=== PATIENT | female | born 1930 | race Caucasian/White ===

== ENCOUNTER 2018-02-22 22:45 | Emergency (ER) | payer MEDICARE, BC ==
--- NOTE | 2018-02-22 23:07 | EDM.PDOC ---
ED HPI GENERAL MEDICAL PROBLEM - General Stated Complaint: AMBULANCE - ASSESSMENT Time Seen by Provider: 02/22/18 23:02 Source of Information: Reports: [facility] Records History Limitations: Reports: Other (dementia) - History of Present Illness INITIAL COMMENTS - FREE TEXT/NARRATIVE: sent from custodial pt slid off sima lift during transfer. EMS found no gross trauma. pt dementia & has no c/o. - Related Data Allergies Allergy/AdvReac Type Severity Reaction Status Date / Time hydrochlorothiazide Allergy Cannot Verified 02/22/18 23:19 Remember Penicillins Allergy Cannot Verified 02/22/18 23:19 Remember phenoxybenzamine HCl Allergy Cannot Verified 02/22/18 23:19 [From Dibenzyline] Remember Home Meds: Home Meds Bisacodyl [Dulcolax] 10 mg RECTAL DAILY PRN 12/09/13 [History] Donepezil HCl 10 mg PO DAILY 12/09/13 [History] LORazepam [Ativan] 0.5 mg PO BID 12/09/13 [History] Levothyroxine Sodium 0.05 mg PO DAILY 12/09/13 [History] Memantine HCl [Namenda] 10 mg PO BID 12/09/13 [History] Na Phos,M-B/Na Phos,DI-B [Fleet Enema] 118 ml RECTAL Q72H PRN 12/09/13 [History] risperiDONE [Risperdal] 0.25 mg PO BID 12/09/13 [History] Acetaminophen [Tylenol] 650 mg PO TID 02/22/18 [History] Aspirin 81 mg PO DAILY 02/22/18 [History] Escitalopram Oxalate 10 mg PO DAILY 02/22/18 [History] Fruit Bomb 1 tbsp PO Q2D PRN 02/22/18 [History] Loperamide HCl [Anti-Diarrheal] 2 mg PO ASDIRECTED PRN 02/22/18 [History] Magnesium Hydroxide [Milk of Magnesia] 2,400 mg PO DAILY PRN 02/22/18 [History] Med Pass 2.0 4 oz PO BID 02/22/18 [History] Polyethylene Glycol 3350 [Miralax] 17 gm PO DAILY 02/22/18 [History] Sennosides/Docusate Sodium [Senna-S] 2 each PO DAILY 02/22/18 [History] Timolol Maleate [Timoptic 0.5% Ophth Soln] 1 drop EYELF BID 02/22/18 [History] Tobramycin 0.3% [Tobramycin 0.3% Ophth Soln] 1 drop EYELF BID 02/22/18 [History] Social & Family History - Tobacco Use Years of Tobacco use: 5 Second Hand Smoke Exposure: No - Alcohol Use Days Per Week of Alcohol Use: 0 - Recreational Drug Use Recreational Drug Use: No ED ROS GENERAL - Review of Systems Review Of Systems: ROS reveals no pertinent complaints other than HPI. ED EXAM, GENERAL - Physical Exam Exam: See Below Exam Limited By: No Limitations General Appearance: Other (conscious non verbal dementia) Eye Exam: Bilateral Eye: Other (right pupils round left pupils catarract) Ears: Normal External Exam, Normal Canal, Hearing Grossly Normal, Normal TMs Nose: Normal Inspection Throat/Mouth: No Airway Compromise Head: Atraumatic, Other (no palpable swelling/tenderness, no notable ecchymosis/ bleeding) Neck: Normal Inspection, Non-Tender, Other (minor abrasion on chin) Respiratory/Chest: No Respiratory Distress, No Accessory Muscle Use, Rhonchi, Other (basilar). No: Decreased Breath Sounds Cardiovascular: Regular Rate, Rhythm GI/Abdominal: Soft, Non-Tender Back Exam: Other (minor abrasion left post scap region) Extremities: Normal Inspection Neurological: Other (dementia) Psychiatric: Flat Affect Skin Exam: Warm, Dry, Normal Color Lymphatic: No Adenopathy Course - Vital Signs Last Recorded V/S: Last Vital Signs Temp 36.8 C 02/22/18 22:50 Pulse 83 02/22/18 22:50 Resp 14 02/22/18 22:50 BP 126/48 L 02/22/18 22:50 Pulse Ox 96 02/22/18 22:50 Departure - Departure Time of Disposition: 23:00 Disposition: DC/Tfer to SNF 03 Condition: Fair Clinical Impression: Chin abrasion, non-infected Abrasion of left scapular region Qualifiers: Encounter type: initial encounter Qualified Code(s): S40.212A - Abrasion of left shoulder, initial encounter - Discharge Information Referrals: PCP,Unobtain [Primary Care Provider] - Forms: ED Department Discharge Additional Instructions: 1) follow up with family doctor 2) return if there is any change or concern
== END 2018-02-22 23:26 ==
LOC: DL.ED 22:45
DX: S11.91XA Laceration without foreign body of unspecified part of neck, initial encounter (principal); S40.212A Abrasion of left shoulder, initial encounter; S00.81XA Abrasion of other part of head, initial encounter; F03.90 Unspecified dementia, unspecified severity, without behavioral disturbance, psychotic disturbance, mood disturbance, and anxiety; Z88.8 Allergy status to other drugs, medicaments and biological substances; Z88.0 Allergy status to penicillin; Z79.899 Other long term (current) drug therapy; Z79.82 Long term (current) use of aspirin; W17.89XA Other fall from one level to another, initial encounter
CPT/HCPCS: 99284

== ENCOUNTER 2018-11-30 10:25 | Inpatient (IN) | payer MEDICARE, BC, MEDICAID ==
[2018-11-30] MEDS ORDERED: Sodium Chloride 0.9% 10 ML Syringe FLUSH PRN (10:26)
--- NOTE | 2018-11-30 10:26 | EDM.PDOC ---
ED HPI GENERAL MEDICAL PROBLEM - General Chief Complaint: Cardiovascular Problem Stated Complaint: PULSE HIGH, HYPOXIA, FEVER Time Seen by Provider: 11/30/18 10:26 Source of Information: Reports: Family, Halfway Records, Old Records, Provider (Dr. Taylor), RN, RN Notes Reviewed History Limitations: Reports: Altered Mental Status - History of Present Illness INITIAL COMMENTS - FREE TEXT/NARRATIVE: Pt arrives from [facility] by ambulance with report that she had a fever this morning, and while being bathed she developed cough with low oxygen saturations (80s), and heart rate increased to 170's. By the time the pt arrived to the ER she was afebrile, heart rate was 103, and oxy. sat. of 95% on RA. Pt did drop her oxy. sat. to 90%-92% later and was placed on 2L by NC and maintained 98% oxy. sats. thereafter. Pt is non-verbal and cannot provide any history. Pt's son and daughter state pt appears to be at her baseline. Pt is documented to be DNR/DNI but otherwise wishes to have conservative medical care. Onset: Today Location: Reports: Generalized Severity: Moderate Improves with: Reports: None Worsens with: Reports: None Associated Symptoms: Reports: No Other Symptoms - Related Data Allergies Allergy/AdvReac Type Severity Reaction Status Date / Time hydrochlorothiazide Allergy Cannot Verified 11/30/18 10:45 Remember Penicillins Allergy Cannot Verified 11/30/18 10:45 Remember phenoxybenzamine HCl Allergy Cannot Verified 11/30/18 10:45 [From Dibenzyline] Remember Home Meds: Home Meds Bisacodyl [Dulcolax] 10 mg RECTAL DAILY PRN 12/09/13 [History] Donepezil HCl 10 mg PO DAILY 12/09/13 [History] LORazepam [Ativan] 0.5 mg PO BID 12/09/13 [History] Levothyroxine Sodium 0.05 mg PO DAILY 12/09/13 [History] Memantine HCl [Namenda] 10 mg PO BID 12/09/13 [History] Na Phos,M-B/Na Phos,DI-B [Fleet Enema] 118 ml RECTAL Q72H PRN 12/09/13 [History] risperiDONE [Risperdal] 0.25 mg PO BID 12/09/13 [History] Acetaminophen [Tylenol] 650 mg PO TID 02/22/18 [History] Aspirin 81 mg PO DAILY 02/22/18 [History] Escitalopram Oxalate 10 mg PO DAILY 02/22/18 [History] Fruit Bomb 1 tbsp PO Q2D PRN 02/22/18 [History] Loperamide HCl [Anti-Diarrheal] 2 mg PO ASDIRECTED PRN 02/22/18 [History] Magnesium Hydroxide [Milk of Magnesia] 2,400 mg PO DAILY PRN 02/22/18 [History] Med Pass 2.0 4 oz PO BID 02/22/18 [History] Polyethylene Glycol 3350 [Miralax] 17 gm PO DAILY 02/22/18 [History] Sennosides/Docusate Sodium [Senna-S] 2 each PO DAILY 02/22/18 [History] Timolol Maleate [Timoptic 0.5% Ophth Soln] 1 drop EYELF BID 02/22/18 [History] Tobramycin 0.3% [Tobramycin 0.3% Ophth Soln] 1 drop EYELF BID 02/22/18 [History] Past Medical History HEENT History: Reports: Other (See Below) Other HEENT History: 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 nutritional deficiency Genitourinary History: Reports: UTI, Recurrent Musculoskeletal History: Reports: Osteoarthritis, Other (See Below) Other Musculoskeletal History: localized scleroderma Neurological History: Reports: Other (See Below) Other Neuro History: cerebral vascular disease Psychiatric History: Reports: Anxiety, Dementia Endocrine/Metabolic History: Reports: Hypothyroidism Dermatologic History: Reports: Seborrheic Dermatitis - Infectious Disease History Infectious Disease History: Reports: Other (See Below) Other Infectious Disease History: unknown, unable to assess Social & Family History - Family History Family Medical History: Noncontributory - Living Situation & Occupation Living situation: Reports: Extended Care Facility Occupation: Retired ED ROS GENERAL - Review of Systems Review Of Systems: Unable To Obtain (nonverbal pt) ED EXAM, GENERAL - Physical Exam Exam: See Below Exam Limited By: Altered Mental Status (Advance dementia) General Appearance: Alert, No Apparent Distress, Other (Frail elderly, chronically ill appearing) Eye Exam: Left Eye: Other (chronic left pupil abnormality), Bilateral Eye: Conjunctival Injection Ears: Normal External Exam Nose: Normal Inspection, Normal Mucosa, No Blood Throat/Mouth: Normal Lips, No Airway Compromise, Other (Dry oral membranes) Head: Atraumatic, Normocephalic Neck: Normal Inspection Respiratory/Chest: No Respiratory Distress, No Accessory Muscle Use, Chest Non- Tender, Decreased Breath Sounds (Left base). No: Rales, Rhonchi, Wheezing Cardiovascular: Regular Rate, Rhythm, No Edema, Tachycardia GI/Abdominal: Normal Bowel Sounds, Soft, Non-Tender, No Distention Extremities: Normal Inspection Neurological: Inattentive, Disoriented, Other (Advanced dementia, nonverbal (at baseline per family)) Skin Exam: Warm, Dry, Intact EKG INTERPRETATION EKG Date: 11/30/18 Time: 10:24 Rhythm: Other (Sinus Tach) Rate (Beats/Min): 103 [place]: Normal P-Wave: Present QRS: Normal ST-T: Other (repol. abnl. in diffuse leads, nonspecific) QT: Normal Comparison: NA - No Prior EKG Course - Vital Signs Last Recorded V/S: Last Vital Signs Temp 37.1 C 11/30/18 10:29 Pulse 105 H 11/30/18 10:29 Resp 27 H 11/30/18 10:29 BP 134/84 11/30/18 10:29 Pulse Ox 94 L 11/30/18 10:29 - Orders/Labs/Meds Orders: Active Orders 24 hr Category Date Time Status EKG 12 Lead [EKG Documentation Completion] [RC] STAT Care 11/30/18 10:27 Active Peripheral IV Care [RC] . DIRECTED Care 11/30/18 10:28 Active CULTURE BLOOD [BC] Stat Lab 11/30/18 10:43 Received CULTURE BLOOD [BC] Stat Lab 11/30/18 10:50 Received Levofloxacin/Dextrose 5%-Water [Levaquin in D5W 500 MG/ Med 11/30/18 11:50 Ordered 100 ML] 500 mg Premix Bag 1 bag IV ONETIME Sodium Chloride 0.9% [Saline Flush] Med 11/30/18 10:26 Active 10 ml FLUSH ASDIRECTED PRN Blood Culture x2 Reflex Set [OM.PC] Stat Oth 11/30/18 10:27 Ordered Peripheral IV Insertion Adult [OM.PC] Stat Oth 11/30/18 10:27 Ordered Medication Orders Levofloxacin/Dextrose 500 mg/ (Premix) 100 mls @ 100 mls/hr IV ONETIME ONE Stop: 11/30/18 12:49 Sodium Chloride (Saline Flush) 10 ml FLUSH ASDIRECTED PRN PRN Reason: Keep Vein Open Last Admin: 11/30/18 10:34 Dose: 10 ml Labs: Laboratory Tests 11/30/18 11/30/18 11/30/18 Range/Units 10:43 10:43 10:43 WBC 14.6 H (5.0-10.0) 10^3/uL RBC 5.25 (4.2-5.4) 10^6/uL Hgb 16.0 D (12.0-16.0) g/dL Hct 50.7 H (37.0-47.0) % MCV 96.6 D (80-100) fL MCH 30.5 (27.0-34.0) pg MCHC 31.6 L (33.0-35.0) g/dL Plt Count 260 (150-450) 10^3/uL Neut % (Auto) 72.1 (42.2-75.2) % Lymph % (Auto) 21.1 (20.5-50.1) % [place] % (Auto) 5.4 (2-8) % Eos % (Auto) 0.9 L (1.0-3.0) % Baso % (Auto) 0.5 (0.0-1.0) % PT 10.2 (9.0-12.0) SEC INR 1.0 (0.9-1.2) APTT 21.9 L (22.0-34.0) SEC Sodium 153 H D (135-145) mmol/L Potassium 3.8 (3.6-5.0) mmol/L Chloride 121 H D (101-111) mmol/L Carbon Dioxide 22.0 (21.0-31.0) mmol/L Anion Gap 13.8 BUN 57 H D (7-18) mg/dL Creatinine 1.0 (0.6-1.3) mg/dL Est Cr Clr Drug Dosing 35.70 mL/min Estimated GFR (MDRD) 52 BUN/Creatinine Ratio 57.00 Glucose 265 H (74-105) mg/dL Lactic Acid (0.5-2.2) mmol/L Calcium 9.1 (8.4-10.2) mg/dl Total Bilirubin 0.8 (0.2-1.0) mg/dL AST 48 H (10-42) IU/L ALT 52 (10-60) IU/L Alkaline Phosphatase 74 (42-121) IU/L Troponin I 0.03 H* (0.00-0.02) ng/ml B-Natriuretic Peptide 71 (0-100) pg/ml Total Protein 7.7 (6.7-8.2) g/dl Albumin 3.9 (3.2-5.5) g/dl Globulin 3.8 Albumin/Globulin Ratio 1.03 Urine Color (YELLOW) Urine Appearance (CLEAR) Urine pH (5.0-9.0) Ur Specific [place] (1.005-1.030) Urine Protein (NEGATIVE) Urine Glucose (UA) (NEGATIVE) Urine Ketones (NEGATIVE) Urine Occult Blood (NEGATIVE) Urine Nitrite (NEGATIVE) Urine Bilirubin (NEGATIVE) Urine Urobilinogen (0.2-1.0) mg/dL Ur Leukocyte Esterase (NEGATIVE) Urine RBC /HPF Urine WBC (0-5/HPF) /HPF Ur Epithelial Cells /HPF Amorphous Sediment (0/HPF) /HPF Urine Bacteria (0-FEW/HPF) /HPF 11/30/18 11/30/18 Range/Units 10:43 11:11 WBC (5.0-10.0) 10^3/uL RBC (4.2-5.4) 10^6/uL Hgb (12.0-16.0) g/dL Hct (37.0-47.0) % MCV (80-100) fL MCH (27.0-34.0) pg MCHC (33.0-35.0) g/dL Plt Count (150-450) 10^3/uL Neut % (Auto) (42.2-75.2) % Lymph % (Auto) (20.5-50.1) % [place] % (Auto) (2-8) % Eos % (Auto) (1.0-3.0) % Baso % (Auto) (0.0-1.0) % PT (9.0-12.0) SEC INR (0.9-1.2) APTT (22.0-34.0) SEC Sodium (135-145) mmol/L Potassium (3.6-5.0) mmol/L Chloride (101-111) mmol/L Carbon Dioxide (21.0-31.0) mmol/L Anion Gap BUN (7-18) mg/dL Creatinine (0.6-1.3) mg/dL Est Cr Clr Drug Dosing mL/min Estimated GFR (MDRD) BUN/Creatinine Ratio Glucose (74-105) mg/dL Lactic Acid 2.7 H (0.5-2.2) mmol/L Calcium (8.4-10.2) mg/dl Total Bilirubin (0.2-1.0) mg/dL AST (10-42) IU/L ALT (10-60) IU/L Alkaline Phosphatase (42-121) IU/L Troponin I (0.00-0.02) ng/ml B-Natriuretic Peptide (0-100) pg/ml Total Protein (6.7-8.2) g/dl Albumin (3.2-5.5) g/dl Globulin Albumin/Globulin Ratio Urine Color Yellow (YELLOW) Urine Appearance Slightly cloudy (CLEAR) Urine pH 5.0 (5.0-9.0) Ur Specific [place] >= 1.030 (1.005-1.030) Urine Protein 100 H (NEGATIVE) Urine Glucose (UA) Negative (NEGATIVE) Urine Ketones Negative (NEGATIVE) Urine Occult Blood Small H (NEGATIVE) Urine Nitrite Negative (NEGATIVE) Urine Bilirubin Negative (NEGATIVE) Urine Urobilinogen 0.2 (0.2-1.0) mg/dL Ur Leukocyte Esterase Negative (NEGATIVE) Urine RBC 0-5 /HPF Urine WBC 0-5 (0-5/HPF) /HPF Ur Epithelial Cells Few /HPF Amorphous Sediment Moderate H (0/HPF) /HPF Urine Bacteria Few (0-FEW/HPF) /HPF Influenza A/B: negative Meds: Medications Generic Name Dose Route Start Last Admin Trade Name Freq PRN Reason Stop Dose Admin Levofloxacin/Dextrose 500 mg/ 100 mls @ 100 mls/hr 11/30/18 11:50 Premix IV 11/30/18 12:49 ONETIME ONE Sodium Chloride 10 ml 11/30/18 10:26 11/30/18 10:34 Saline Flush FLUSH 10 ml ASDIRECTED PRN Administration Keep Vein Open Discontinued Medications Generic Name Dose Route Start Last Admin Trade Name Srini PRN Reason Stop Dose Admin Sodium Chloride 1,000 mls @ 999 mls/hr 11/30/18 10:35 11/30/18 11:20 Normal Saline IV 11/30/18 11:35 999 mls/hr .BOLUS ONE Administration - Radiology Interpretation Free Text/Narrative:: CXR: no acute process per Rad. report. - Re-Assessments/Exams Free Text/Narrative Re-Assessment/Exam: 11/30/18 12:01 I discussed the case with Dr. Taylor (pt's PCP). Dr. Taylor does not want to bring the pt back to the residential at this time, and requests that the pt be admitted for observation and hydration with repeat labs and chest x-ray to r/o developing pneumonia before returning her to the residential. Pt will be admitted to Dr. Quiñonez's hospitalist service. Departure - Departure Time of Disposition: 11:58 (admit to Dr. Quiñonez) Disposition: Refer to Observation Condition: Undetermined Clinical Impression: Dehydration, Hypernatremia, Fever of unknown origin, Advanced dementia Pneumonia Qualifiers: Pneumonia type: due to unspecified organism Laterality: left Lung location: lower lobe of lung Qualified Code(s): J18.1 - Lobar pneumonia, unspecified organism - Discharge Information *PRESCRIPTION DRUG MONITORING PROGRAM REVIEWED*: Not Applicable *COPY OF PRESCRIPTION DRUG MONITORING REPORT IN PATIENT KENDRICK: Not Applicable Forms: ED Department Discharge - My Orders Last 24 Hours: My Active Orders 11/30/18 10:26 Sodium Chloride 0.9% [Saline Flush] 10 ml FLUSH ASDIRECTED PRN 11/30/18 10:27 EKG 12 Lead [EKG Documentation Completion] [RC] STAT Blood Culture x2 Reflex Set [OM.PC] Stat Peripheral IV Insertion Adult [OM.PC] Stat 11/30/18 10:28 Peripheral IV Care [RC] . DIRECTED 11/30/18 10:43 CULTURE BLOOD [BC] Stat 11/30/18 10:50 CULTURE BLOOD [BC] Stat 11/30/18 11:50 Levofloxacin/Dextrose 5%-Water [Levaquin in D5W 500 MG/100 ML] 500 mg Premix Bag 1 bag IV ONETIME - Assessment/Plan Last 24 Hours: My Active Orders 11/30/18 10:26 Sodium Chloride 0.9% [Saline Flush] 10 ml FLUSH ASDIRECTED PRN 11/30/18 10:27 EKG 12 Lead [EKG Documentation Completion] [RC] STAT Blood Culture x2 Reflex Set [OM.PC] Stat Peripheral IV Insertion Adult [OM.PC] Stat 11/30/18 10:28 Peripheral IV Care [] . DIRECTED 11/30/18 10:43 CULTURE BLOOD [BC] Stat 11/30/18 10:50 CULTURE BLOOD [BC] Stat 11/30/18 11:50 Levofloxacin/Dextrose 5%-Water [Levaquin in D5W 500 MG/100 ML] 500 mg Premix Bag 1 bag IV ONETIME
[2018-11-30] MEDS ORDERED: Sodium Chloride 0.9% 1,000 ML IV ONE (10:35)
[2018-11-30 11:17] LABS: ANION GAP 13.8
[2018-11-30] MEDS ORDERED: Levofloxacin/Dextrose 5%-Water 500 MG in Premix Bag 1 BAG IV ONE (11:50)
--- NOTE | 2018-11-30 11:50 | CR ---
Clinical history: 88-year-old female cough and acute tachycardia. Interpretation: Rotated AP supine chest film unremarkable and unchanged except for technique since 09 December 2013 i.e. scoliosis with multilevel disc disease and arthritis of the spine. External legal instructor leads. Normal cardiac silhouette without cephalization of flow, new signs of alveolar edema or dependent pleural fluid accumulation. No new lung mass, hilar lymphadenopathy, focal lobar pneumonia or atelectasis/collapse. No pneumothorax. CONCLUSION: No acute cardiopulmonary abnormality.
[2018-11-30] MEDS ORDERED: [UNRECOGNIZED DRUG - OTHER] PO PRN (15:17)
[2018-11-30] MEDS ORDERED: Bisacodyl 10 MG Supp RECTAL PRN (15:17)
--- NOTE | 2018-11-30 16:58 | PCM.HP ---
H&P History of Present Illness - General Date of Service: 11/30/18 Admit Problem/Dx: Admission Diagnosis/Problem Admission Diagnosis/Problem Hypernatremia Source of Information: EMS, EMS Notes Reviewed History Limitations: Reports: Other (non-verbal) - History of Present Illness Initial Comments - Free Text/Narative: Patient is a poor historian and cannot provide adequate history because she is nonverbal. History from EMR Patient arrives from [facility] [place] by ambulance with report that she had a fever this morning, and while being bathed she developed cough with low oxygen saturations (80s), and heart rate increased to 170's. By the time the pt arrived to the ER she was afebrile, heart rate was 103, and oxy. sat. of 95% on RA. Pt did drop her oxy. sat. to 90%-92% later and was placed on 2L by NC and maintained 98% oxy. sats. thereafter. Patient is non-verbal and cannot provide any history. Patient's son and daughter state pt appears to be at her baseline. Pt is documented to be DNR/DNI but otherwise wishes to have conservative medical care. In the ER vitals were stable, WBC 14.6, WN 57, sodium 155, lactic acid 2.7, glucose 259. Improves with: Reports: None Worsens with: Reports: None Associated Symptoms: Reports: No Other Symptoms - Related Data Allergies/Adverse Reactions: Allergies Allergy/AdvReac Type Severity Reaction Status Date / Time hydrochlorothiazide Allergy Cannot Verified 11/30/18 14:10 Remember Penicillins Allergy Cannot Verified 11/30/18 14:10 Remember phenoxybenzamine HCl Allergy Cannot Verified 11/30/18 14:10 [From Dibenzyline] Remember Home Medications: Home Meds Bisacodyl [Dulcolax] 10 mg RECTAL Q24H PRN 12/09/13 [History] Donepezil HCl 10 mg PO DAILY 12/09/13 [History] LORazepam [Ativan] 0.5 mg PO BID 12/09/13 [History] Levothyroxine Sodium 0.05 mg PO DAILY 12/09/13 [History] Memantine HCl [Namenda] 10 mg PO BID 12/09/13 [History] Na Phos,M-B/Na Phos,DI-B [Fleet Enema] 118 ml RECTAL Q72H PRN 12/09/13 [History] risperiDONE [Risperdal] 0.25 mg PO BID 12/09/13 [History] Acetaminophen [Tylenol] 650 mg PO TID 02/22/18 [History] Aspirin 81 mg PO DAILY 02/22/18 [History] Escitalopram Oxalate 10 mg PO DAILY 02/22/18 [History] Fruit Bomb 1 tbsp PO Q2D PRN 02/22/18 [History] Loperamide HCl [Anti-Diarrheal] 2 mg PO ASDIRECTED PRN 02/22/18 [History] Magnesium Hydroxide [Milk of Magnesia] 2,400 mg PO DAILY PRN 02/22/18 [History] Polyethylene Glycol 3350 [Miralax] 17 gm PO BEDTIME 02/22/18 [History] Sennosides/Docusate Sodium [Senna-S] 2 each PO BEDTIME 02/22/18 [History] Timolol Maleate [Timoptic 0.5% Ophth Soln] 1 drop EYELF BID 02/22/18 [History] Acetaminophen 325 mg PO Q8HR PRN 11/30/18 [History] LORazepam 0.5 mg PO Q8H PRN 11/30/18 [History] Past Medical History HEENT History: Reports: Other (See Below) Other HEENT History: 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 nutritional deficiency Genitourinary History: Reports: UTI, Recurrent POT BUILDER History: Reports: Musculoskeletal History: Reports: Osteoarthritis, Other (See Below) Other Musculoskeletal History: localized scleroderma Neurological History: Reports: Other (See Below) Other Neuro History: cerebral vascular disease Psychiatric History: Reports: Anxiety, Dementia Other Psychiatric History: conduct diorder Endocrine/Metabolic History: Reports: Hypothyroidism Dermatologic History: Reports: Seborrheic Dermatitis - Infectious Disease History Infectious Disease History: Reports: None Other Infectious Disease History: unknown, unable to assess - Past Surgical History HEENT Surgical History: Reports: Cataract Surgery Cardiovascular Surgical History: Reports: None GI Surgical History: Reports: None Female Surgical History: Reports: None Endocrine Surgical History: Reports: None Neurological Surgical History: Reports: None Musculoskeletal Surgical History: Reports: Other (See Below) Other Musculoskeletal Surgeries/Procedures:: Rotator cuff surgery Social & Family History - Family History Family Medical History: Noncontributory - Tobacco Use Smoking Status *Q: Never Smoker - Caffeine Use Caffeine Use: Reports: Coffee - Recreational Drug Use Recreational Drug Use: No - Living Situation & Occupation Living situation: Reports: Extended Care Facility Occupation: Retired H&P Review of Systems - Review of Systems: Review Of Systems: See Below General: Reports: No Symptoms HEENT: Reports: No Symptoms Pulmonary: Reports: No Symptoms Cardiovascular: Reports: No Symptoms Gastrointestinal: Reports: No Symptoms Genitourinary: Reports: No Symptoms Musculoskeletal: Reports: No Symptoms Skin: Reports: No Symptoms Psychiatric: Reports: No Symptoms Neurological: Reports: No Symptoms Hematologic/Lymphatic: Reports: No Symptoms Immunologic: Reports: No Symptoms Exam - Exam Exam: See Below - Vital Signs Vital Signs: Last Vital Signs Temp 98.6 F 11/30/18 15:41 Pulse 95 11/30/18 15:41 Resp 20 11/30/18 15:41 BP 130/84 11/30/18 15:41 Pulse Ox 98 11/30/18 15:41 Weight: 200 lb - Exam General: Alert, Oriented, 4 HEENT: Conjunctiva Clear, EACs Clear, EOMI, Hearing Intact, Mucosa Moist & Causey , Nares Patent, Normal Nasal Septum, Posterior Pharynx Clear, TMs Clear, Other ( dry oral mucosa), PERRLA Neck: Supple, Trachea Midline, 2 Lungs: Clear to Auscultation, Normal Respiratory Effort Cardiovascular: Regular Rate, Regular Rhythm GI/Abdominal Exam: Normal Bowel Sounds, Soft, Non-Tender, No Organomegaly, No Distention, No Abnormal Bruit, No Mass, Pelvis Stable (Female) Exam: Normal External Exam, Normal Speculum Exam, Normal Bimanual Exam Rectal (Female) Exam: Normal Exam, Normal Rectal Tone Back Exam: Normal Inspection, Full Range of Motion, NT Extremities: Normal Inspection, Normal Range of Motion, Non-Tender, No Pedal Edema, Normal Capillary Refill Skin: Warm, Dry, Intact Neurological: Cranial Nerves Intact, Reflexes Equal Bilateral Neuro Extensive - Mental Status: Alert, Oriented x3, Normal Mood/Affect, Normal Cognition Neuro Extensive - Motor, Sensory, Reflexes: CN II-XII Intact, Normal Gait, Normal Reflexes Psychiatric: Alert, Normal Affect, Normal Mood - Patient Data Lab Results Last 24 hrs: Laboratory Results - last 24 hr 11/30/18 11/30/18 11/30/18 Range/Units 10:43 10:43 10:43 WBC 14.6 H (5.0-10.0) 10^3/uL RBC 5.25 (4.2-5.4) 10^6/uL Hgb 16.0 D (12.0-16.0) g/dL Hct 50.7 H (37.0-47.0) % MCV 96.6 D (80-100) fL MCH 30.5 (27.0-34.0) pg MCHC 31.6 L (33.0-35.0) g/dL Plt Count 260 (150-450) 10^3/uL Neut % (Auto) 72.1 (42.2-75.2) % Lymph % (Auto) 21.1 (20.5-50.1) % Wood % (Auto) 5.4 (2-8) % Eos % (Auto) 0.9 L (1.0-3.0) % Baso % (Auto) 0.5 (0.0-1.0) % PT 10.2 (9.0-12.0) SEC INR 1.0 (0.9-1.2) APTT 21.9 L (22.0-34.0) SEC Sodium 153 H D (135-145) mmol/L Potassium 3.8 (3.6-5.0) mmol/L Chloride 121 H D (101-111) mmol/L Carbon Dioxide 22.0 (21.0-31.0) mmol/L Anion Gap 13.8 BUN 57 H D (7-18) mg/dL Creatinine 1.0 (0.6-1.3) mg/dL Est Cr Clr Drug Dosing 35.70 mL/min Estimated GFR (MDRD) 52 BUN/Creatinine Ratio 57.00 Glucose 265 H (74-105) mg/dL Lactic Acid (0.5-2.2) mmol/L Calcium 9.1 (8.4-10.2) mg/dl Total Bilirubin 0.8 (0.2-1.0) mg/dL AST 48 H (10-42) IU/L ALT 52 (10-60) IU/L Alkaline Phosphatase 74 (42-121) IU/L Troponin I 0.03 H* (0.00-0.02) ng/ml B-Natriuretic Peptide 71 (0-100) pg/ml Total Protein 7.7 (6.7-8.2) g/dl Albumin 3.9 (3.2-5.5) g/dl Globulin 3.8 Albumin/Globulin Ratio 1.03 Urine Color (YELLOW) Urine Appearance (CLEAR) Urine pH (5.0-9.0) Ur Specific [place] (1.005-1.030) Urine Protein (NEGATIVE) Urine Glucose (UA) (NEGATIVE) Urine Ketones (NEGATIVE) Urine Occult Blood (NEGATIVE) Urine Nitrite (NEGATIVE) Urine Bilirubin (NEGATIVE) Urine Urobilinogen (0.2-1.0) mg/dL Ur Leukocyte Esterase (NEGATIVE) Urine RBC /HPF Urine WBC (0-5/HPF) /HPF Ur Epithelial Cells /HPF Amorphous Sediment (0/HPF) /HPF Urine Bacteria (0-FEW/HPF) /HPF 11/30/18 11/30/18 11/30/18 Range/Units 10:43 11:11 15:25 WBC (5.0-10.0) 10^3/uL RBC (4.2-5.4) 10^6/uL Hgb (12.0-16.0) g/dL Hct (37.0-47.0) % MCV (80-100) fL MCH (27.0-34.0) pg MCHC (33.0-35.0) g/dL Plt Count (150-450) 10^3/uL Neut % (Auto) (42.2-75.2) % Lymph % (Auto) (20.5-50.1) % Wood % (Auto) (2-8) % Eos % (Auto) (1.0-3.0) % Baso % (Auto) (0.0-1.0) % PT (9.0-12.0) SEC INR (0.9-1.2) APTT (22.0-34.0) SEC Sodium 155 H (135-145) mmol/L Potassium (3.6-5.0) mmol/L Chloride (101-111) mmol/L Carbon Dioxide (21.0-31.0) mmol/L Anion Gap BUN (7-18) mg/dL Creatinine (0.6-1.3) mg/dL Est Cr Clr Drug Dosing mL/min Estimated GFR (MDRD) BUN/Creatinine Ratio Glucose (74-105) mg/dL Lactic Acid 2.7 H (0.5-2.2) mmol/L Calcium (8.4-10.2) mg/dl Total Bilirubin (0.2-1.0) mg/dL AST (10-42) IU/L ALT (10-60) IU/L Alkaline Phosphatase (42-121) IU/L Troponin I (0.00-0.02) ng/ml B-Natriuretic Peptide (0-100) pg/ml Total Protein (6.7-8.2) g/dl Albumin (3.2-5.5) g/dl Globulin Albumin/Globulin Ratio Urine Color Yellow (YELLOW) Urine Appearance Slightly cloudy (CLEAR) Urine pH 5.0 (5.0-9.0) Ur Specific [place] >= 1.030 (1.005-1.030) Urine Protein 100 H (NEGATIVE) Urine Glucose (UA) Negative (NEGATIVE) Urine Ketones Negative (NEGATIVE) Urine Occult Blood Small H (NEGATIVE) Urine Nitrite Negative (NEGATIVE) Urine Bilirubin Negative (NEGATIVE) Urine Urobilinogen 0.2 (0.2-1.0) mg/dL Ur Leukocyte Esterase Negative (NEGATIVE) Urine RBC 0-5 /HPF Urine WBC 0-5 (0-5/HPF) /HPF Ur Epithelial Cells Few /HPF Amorphous Sediment Moderate H (0/HPF) /HPF Urine Bacteria Few (0-FEW/HPF) /HPF Result Diagrams: 11/30/18 10:43 11/30/18 15:25 Alex Results Last 24 hrs: Microbiology 11/30/18 10:39 Influenza Type A Antigen Screen - Final Nasal, Unspecified NEGATIVE INFLUENZA A VIRUS AG Influenza Type B Antigen Screen - Final NEGATIVE INFLUENZA B VIRUS AG - Problem List (1) Sepsis SNOMED Code(s): 43992240 ICD Code: A41.9 - SEPSIS, UNSPECIFIED ORGANISM Status: Acute Current Visit: Yes (2) Advanced dementia SNOMED Code(s): 41987487 ICD Code: F03.90 - UNSPECIFIED DEMENTIA WITHOUT BEHAVIORAL DISTURBANCE Status: Acute Current Visit: Yes (3) Dehydration SNOMED Code(s): 69793027 ICD Code: E86.0 - DEHYDRATION Status: Acute Current Visit: Yes (4) Fever of unknown origin SNOMED Code(s): 5448036 ICD Code: R50.9 - FEVER, UNSPECIFIED Status: Acute Current Visit: Yes (5) Hypernatremia SNOMED Code(s): 93703010 ICD Code: E87.0 - HYPEROSMOLALITY AND HYPERNATREMIA Status: Acute Current Visit: Yes (6) Pneumonia SNOMED Code(s): 122667533 ICD Code: J18.9 - PNEUMONIA, UNSPECIFIED ORGANISM Status: Acute Current Visit: Yes Qualifiers: Pneumonia type: due to unspecified organism Laterality: left Lung location: lower lobe of lung Qualified Code(s): J18.1 - Lobar pneumonia, unspecified organism (7) Chin abrasion, non-infected SNOMED Code(s): 74207148, 751123866 ICD Code: S00.81XA - ABRASION OF OTHER PART OF HEAD, INITIAL ENCOUNTER Status: Acute Current Visit: Yes Problem List Initiated/Reviewed/Updated: Yes Orders Last 24hrs: Active Orders 24 hr Category Date Time Status Patient Status [ADT] Routine ADT 11/30/18 15:10 Active Intake and Output [RC] QSHIFT Care 11/30/18 15:11 Active Notify Provider Vital Signs [RC] ASDIRECTED Care 11/30/18 15:12 Active Up With Assistance [RC] ASDIRECTED Care 11/30/18 15:09 Active Vital Signs [RC] 00,04,08,12,16,20 Care 11/30/18 15:10 Active Regular Diet [DIET] Diet 11/30/18 Dinner Active CULTURE BLOOD [BC] Stat Lab 11/30/18 10:43 Received CULTURE BLOOD [BC] Stat Lab 11/30/18 10:50 Received SODIUM,NA [CHEM] Q4H Lab 11/30/18 19:15 Ordered SODIUM,NA [CHEM] Q4H Lab 11/30/18 23:15 Ordered SODIUM,NA [CHEM] Q4H Lab 12/01/18 03:15 Ordered SODIUM,NA [CHEM] Q4H Lab 12/01/18 07:15 Ordered SODIUM,NA [CHEM] Q4H Lab 12/01/18 11:15 Ordered Acetaminophen [Tylenol] Med 11/30/18 21:00 Active 650 mg PO TID Aspirin Med 12/01/18 09:00 Active 81 mg PO DAILY Bisacodyl [Dulcolax] Med 11/30/18 15:17 Active 10 mg RECTAL DAILY PRN Dextrose 5% in Water 1,000 ml Med 11/30/18 16:45 Ordered IV ASDIRECTED Donepezil [Aricept] Med 12/01/18 09:00 Active 10 mg PO DAILY Escitalopram [Lexapro] Med 12/01/18 09:00 Active 10 mg PO DAILY Heparin Sodium Med 11/30/18 21:00 Active 5,000 units SUBCUT Q12H Levofloxacin/Dextrose 5%-Water [Levaquin in D5W 250 MG/ Med 12/01/18 12:00 Active 50 ML] 250 mg Premix Bag 1 bag IV Q24H Sodium Chloride 0.9% [Saline Flush] Med 11/30/18 10:26 Active 10 ml FLUSH ASDIRECTED PRN Blood Culture x2 Reflex Set [OM.PC] Stat Ot 11/30/18 10:27 Ordered Peripheral IV Insertion Adult [OM.PC] Stat Ot 11/30/18 10:27 Ordered Code Status [Resuscitation Status] Routine Resus Stat 11/30/18 15:15 Ordered Medication Orders Acetaminophen (Tylenol) 650 mg PO TID JESUS Aspirin (Aspirin) 81 mg PO DAILY JESUS Bisacodyl (Dulcolax) 10 mg RECTAL DAILY PRN PRN Reason: Constipation Donepezil HCl (Aricept) 10 mg PO DAILY JESUS Escitalopram Oxalate (Lexapro) 10 mg PO DAILY JESUS Heparin Sodium (Porcine) (Heparin Sodium) 5,000 units SUBCUT Q12H JESUS Levofloxacin/Dextrose 250 mg/ (Premix) 50 mls @ 50 mls/hr IV Q24H JESUS Dextrose/Water (Dextrose 5% In Water) 1,000 mls @ 75 mls/hr IV ASDIRECTED JESUS Sodium Chloride (Saline Flush) 10 ml FLUSH ASDIRECTED PRN PRN Reason: Keep Vein Open Last Admin: 11/30/18 10:34 Dose: 10 ml Assessment/Plan Comment:: Hypernatremia due to dehydration NA 155 5% dextrose at 75 Correct sodium slowly Na q4h Possible developing pneumonia Blood cx x 2, sputum for Gram stain and cx Levaquin IV repat cxr in the AM Possible sepsis due to above Lactic acid q4h x 2 IV abx Follow cx IVF Lactic acidosis ue to sepsis vs dehydration trend lactate IVF Severe Dementia continue home meds Regular diet DNI/DNR
[2018-11-30] MEDS ORDERED: Acetaminophen 325 MG Tab PO PRN (17:08)
[2018-11-30] MEDS ORDERED: Loperamide 2 MG Cap PO PRN (17:08)
[2018-11-30] MEDS ORDERED: SODIUM PHOSPHATE DIBASIC RECTAL PRN (17:08)
[2018-11-30] MEDS ORDERED: SODIUM PHOSPHATE MONOBASIC RECTAL PRN (17:08)
[2018-11-30] MEDS ORDERED: Magnesium Hydroxide 400 MG/5 ML Susp 30 ML Cup PO PRN (17:08)
[2018-11-30] MEDS ORDERED: LORazepam 0.5 MG Tab PO PRN (17:08)
[2018-11-30] MEDS ORDERED: Dextrose 5%-0.45% NaCl 1,000 ML IV ONE (17:15)
[2018-11-30] MEDS ORDERED: Sodium Chloride 0.45% 1,000 ML IV ONE (17:15)
[2018-11-30] MEDS: Dextrose 5% in Water 1,000 ML IV SCH (21:30)
[2018-11-30] MEDS: LORazepam 0.5 MG Tab PO SCH (22:39)
[2018-11-30] MEDS: Heparin Sodium 5,000 Units/ML Vial SUBCUT SCH (22:40)
[2018-11-30] MEDS: Polyethylene Glycol 3350 Powder 17 GM Packet PO SCH (22:40)
[2018-11-30] MEDS: risperiDONE 0.5 MG Tab PO SCH (22:41)
[2018-11-30] MEDS: Memantine 10 MG Tab PO SCH (22:41)
[2018-11-30] MEDS: Timolol Maleate 0.5% Ophth Soln 5 ML Bottle EYELF SCH (22:42)
[2018-11-30] MEDS: Acetaminophen 325 MG Tab PO SCH (22:43)
[2018-12-01 03:44] LABS: ANION GAP 13.8
[2018-12-01] MEDS: Levothyroxine 50 MCG Tab PO SCH (07:25)
[2018-12-01] MEDS: Memantine 10 MG Tab PO SCH ×2 (09:32→20:17)
[2018-12-01] MEDS: LORazepam 0.5 MG Tab PO SCH ×2 (09:32→20:18)
[2018-12-01] MEDS: Acetaminophen 325 MG Tab PO SCH ×3 (09:32→20:19)
[2018-12-01] MEDS: Heparin Sodium 5,000 Units/ML Vial SUBCUT SCH ×2 (09:32→20:57)
[2018-12-01] MEDS: risperiDONE 0.5 MG Tab PO SCH ×2 (09:34→20:15)
[2018-12-01] MEDS: Donepezil 10 MG Tab PO SCH (09:34)
[2018-12-01] MEDS: Aspirin 81 MG Tab.Chew PO SCH (09:34)
[2018-12-01] MEDS: Escitalopram 10 MG Tab PO SCH (09:34)
[2018-12-01] MEDS: Timolol Maleate 0.5% Ophth Soln 5 ML Bottle EYELF SCH ×2 (09:36→20:54)
--- NOTE | 2018-12-01 09:47 | CR ---
Clinical history: 88-year-old female hospitalized with "shortness of breath". Interpretation: AP supine portable chest radiograph unremarkable and unchanged compared to previous day and to film of 09 December 2013. Normal cardiac silhouette. No alveolar edema or dependent pleural effusion. No new lung mass, hilar lymphadenopathy or focal lobar pneumonia. No pneumothorax.
[2018-12-01] MEDS: Dextrose 5% in Water 1,000 ML IV SCH (10:46)
--- NOTE | 2018-12-01 11:26 | PCM.PN ---
- General Info Date of Service: 12/01/18 Admission Dx/Problem (Free Text): Admission Diagnosis/Problem Admission Diagnosis/Problem Hypernatremia Subjective Update: Patient is a residence of [facility] who was brought to the ER on a/ o fever, cough, hypoxia and tachycardia. When she was see in te ER she was afebrile, heart rate was 103, and oxy. sat. of 95% on RA. She did drop her oxygen saturation to 90%-92% later in the ER and was placed on 2L by [place] and maintained saturation at 98%. She was found to be hypernatremia and subsequently admitted. She is currently being managed for possible sepsis from developing pneumonia. Patient is DNR/DNI but family otherwise wishes to have conservative medical care. She was seen and examined today. Her overall condition remains unchanged. Sodium trending down, 148 this AM. Repeat chest x-ray unchanged from yesterday. No infiltrates. She remains hemodynamically stable Functional Status: Reports: Pain Controlled - Review of Systems General: Reports: No Symptoms HEENT: Reports: No Symptoms Pulmonary: Reports: No Symptoms Cardiovascular: Reports: No Symptoms Gastrointestinal: Reports: No Symptoms Genitourinary: Reports: No Symptoms Musculoskeletal: Reports: No Symptoms Skin: Reports: No Symptoms Neurological: Reports: No Symptoms Psychiatric: Reports: No Symptoms - Patient Data Vitals - Most Recent: Last Vital Signs Temp 98.3 F 12/01/18 08:00 Pulse 83 12/01/18 08:00 Resp 20 12/01/18 08:00 BP 114/48 L 12/01/18 08:00 Pulse Ox 98 12/01/18 08:00 Weight - Most Recent: 200 lb I&O - Last 24 Hours: Intake & Output 11/30/18 12/01/18 12/01/18 22:59 06:59 14:59 Intake Total 1150 1000 Output Total 2 Balance 1148 1000 Lab Results Last 24 Hours: Laboratory Results - last 24 hr 11/30/18 11/30/18 11/30/18 Range/Units 10:43 10:43 10:43 WBC (5.0-10.0) 10^3/uL RBC (4.2-5.4) 10^6/uL Hgb (12.0-16.0) g/dL Hct (37.0-47.0) % MCV (80-100) fL MCH (27.0-34.0) pg MCHC (33.0-35.0) g/dL Plt Count (150-450) 10^3/uL Neut % (Auto) (42.2-75.2) % Lymph % (Auto) (20.5-50.1) % [place] % (Auto) (2-8) % Eos % (Auto) (1.0-3.0) % Baso % (Auto) (0.0-1.0) % PT 10.2 (9.0-12.0) SEC INR 1.0 (0.9-1.2) APTT 21.9 L (22.0-34.0) SEC Sodium 153 H D (135-145) mmol/L Potassium 3.8 (3.6-5.0) mmol/L Chloride 121 H D (101-111) mmol/L Carbon Dioxide 22.0 (21.0-31.0) mmol/L Anion Gap 13.8 BUN 57 H D (7-18) mg/dL Creatinine 1.0 (0.6-1.3) mg/dL Est Cr Clr Drug Dosing 35.70 mL/min Estimated GFR (MDRD) 52 BUN/Creatinine Ratio 57.00 Glucose 265 H (74-105) mg/dL Lactic Acid 2.7 H (0.5-2.2) mmol/L Calcium 9.1 (8.4-10.2) mg/dl Total Bilirubin 0.8 (0.2-1.0) mg/dL AST 48 H (10-42) IU/L ALT 52 (10-60) IU/L Alkaline Phosphatase 74 (42-121) IU/L Troponin I 0.03 H* (0.00-0.02) ng/ml B-Natriuretic Peptide 71 (0-100) pg/ml Total Protein 7.7 (6.7-8.2) g/dl Albumin 3.9 (3.2-5.5) g/dl Globulin 3.8 Albumin/Globulin Ratio 1.03 Urine Color (YELLOW) Urine Appearance (CLEAR) Urine pH (5.0-9.0) Ur Specific [place] (1.005-1.030) Urine Protein (NEGATIVE) Urine Glucose (UA) (NEGATIVE) Urine Ketones (NEGATIVE) Urine Occult Blood (NEGATIVE) Urine Nitrite (NEGATIVE) Urine Bilirubin (NEGATIVE) Urine Urobilinogen (0.2-1.0) mg/dL Ur Leukocyte Esterase (NEGATIVE) Urine RBC /HPF Urine WBC (0-5/HPF) /HPF Ur Epithelial Cells /HPF Amorphous Sediment (0/HPF) /HPF Urine Bacteria (0-FEW/HPF) /HPF 11/30/18 11/30/18 11/30/18 Range/Units 11:11 15:25 17:40 WBC (5.0-10.0) 10^3/uL RBC (4.2-5.4) 10^6/uL Hgb (12.0-16.0) g/dL Hct (37.0-47.0) % MCV (80-100) fL MCH (27.0-34.0) pg MCHC (33.0-35.0) g/dL Plt Count (150-450) 10^3/uL Neut % (Auto) (42.2-75.2) % Lymph % (Auto) (20.5-50.1) % [place] % (Auto) (2-8) % Eos % (Auto) (1.0-3.0) % Baso % (Auto) (0.0-1.0) % PT (9.0-12.0) SEC INR (0.9-1.2) APTT (22.0-34.0) SEC Sodium 155 H (135-145) mmol/L Potassium (3.6-5.0) mmol/L Chloride (101-111) mmol/L Carbon Dioxide (21.0-31.0) mmol/L Anion Gap BUN (7-18) mg/dL Creatinine (0.6-1.3) mg/dL Est Cr Clr Drug Dosing mL/min Estimated GFR (MDRD) BUN/Creatinine Ratio Glucose (74-105) mg/dL Lactic Acid 2.2 (0.5-2.2) mmol/L Calcium (8.4-10.2) mg/dl Total Bilirubin (0.2-1.0) mg/dL AST (10-42) IU/L ALT (10-60) IU/L Alkaline Phosphatase (42-121) IU/L Troponin I (0.00-0.02) ng/ml B-Natriuretic Peptide (0-100) pg/ml Total Protein (6.7-8.2) g/dl Albumin (3.2-5.5) g/dl Globulin Albumin/Globulin Ratio Urine Color Yellow (YELLOW) Urine Appearance Slightly cloudy (CLEAR) Urine pH 5.0 (5.0-9.0) Ur Specific [place] >= 1.030 (1.005-1.030) Urine Protein 100 H (NEGATIVE) Urine Glucose (UA) Negative (NEGATIVE) Urine Ketones Negative (NEGATIVE) Urine Occult Blood Small H (NEGATIVE) Urine Nitrite Negative (NEGATIVE) Urine Bilirubin Negative (NEGATIVE) Urine Urobilinogen 0.2 (0.2-1.0) mg/dL Ur Leukocyte Esterase Negative (NEGATIVE) Urine RBC 0-5 /HPF Urine WBC 0-5 (0-5/HPF) /HPF Ur Epithelial Cells Few /HPF Amorphous Sediment Moderate H (0/HPF) /HPF Urine Bacteria Few (0-FEW/HPF) /HPF 11/30/18 11/30/18 11/30/18 Range/Units 19:45 23:15 23:15 WBC (5.0-10.0) 10^3/uL RBC (4.2-5.4) 10^6/uL Hgb (12.0-16.0) g/dL Hct (37.0-47.0) % MCV (80-100) fL MCH (27.0-34.0) pg MCHC (33.0-35.0) g/dL Plt Count (150-450) 10^3/uL Neut % (Auto) (42.2-75.2) % Lymph % (Auto) (20.5-50.1) % [place] % (Auto) (2-8) % Eos % (Auto) (1.0-3.0) % Baso % (Auto) (0.0-1.0) % PT (9.0-12.0) SEC INR (0.9-1.2) APTT (22.0-34.0) SEC Sodium 154 H 151 H (135-145) mmol/L Potassium (3.6-5.0) mmol/L Chloride (101-111) mmol/L Carbon Dioxide (21.0-31.0) mmol/L Anion Gap BUN (7-18) mg/dL Creatinine (0.6-1.3) mg/dL Est Cr Clr Drug Dosing mL/min Estimated GFR (MDRD) BUN/Creatinine Ratio Glucose (74-105) mg/dL Lactic Acid 2.3 H (0.5-2.2) mmol/L Calcium (8.4-10.2) mg/dl Total Bilirubin (0.2-1.0) mg/dL AST (10-42) IU/L ALT (10-60) IU/L Alkaline Phosphatase (42-121) IU/L Troponin I (0.00-0.02) ng/ml B-Natriuretic Peptide (0-100) pg/ml Total Protein (6.7-8.2) g/dl Albumin (3.2-5.5) g/dl Globulin Albumin/Globulin Ratio Urine Color (YELLOW) Urine Appearance (CLEAR) Urine pH (5.0-9.0) Ur Specific [place] (1.005-1.030) Urine Protein (NEGATIVE) Urine Glucose (UA) (NEGATIVE) Urine Ketones (NEGATIVE) Urine Occult Blood (NEGATIVE) Urine Nitrite (NEGATIVE) Urine Bilirubin (NEGATIVE) Urine Urobilinogen (0.2-1.0) mg/dL Ur Leukocyte Esterase (NEGATIVE) Urine RBC /HPF Urine WBC (0-5/HPF) /HPF Ur Epithelial Cells /HPF Amorphous Sediment (0/HPF) /HPF Urine Bacteria (0-FEW/HPF) /HPF 12/01/18 12/01/18 12/01/18 Range/Units 03:15 03:15 07:29 WBC 11.0 H (5.0-10.0) 10^3/uL RBC 4.37 (4.2-5.4) 10^6/uL Hgb 13.3 D (12.0-16.0) g/dL Hct 43.0 (37.0-47.0) % MCV 98.4 (80-100) fL MCH 30.4 (27.0-34.0) pg MCHC 30.9 L (33.0-35.0) g/dL Plt Count 194 (150-450) 10^3/uL Neut % (Auto) 67.4 (42.2-75.2) % Lymph % (Auto) 25.4 (20.5-50.1) % [place] % (Auto) 4.7 (2-8) % Eos % (Auto) 2.0 (1.0-3.0) % Baso % (Auto) 0.5 (0.0-1.0) % PT (9.0-12.0) SEC INR (0.9-1.2) APTT (22.0-34.0) SEC Sodium 150 H 148 H (135-145) mmol/L Potassium 3.8 (3.6-5.0) mmol/L Chloride 116 H (101-111) mmol/L Carbon Dioxide 24.0 (21.0-31.0) mmol/L Anion Gap 13.8 BUN 45 H (7-18) mg/dL Creatinine 0.9 (0.6-1.3) mg/dL Est Cr Clr Drug Dosing 39.67 mL/min Estimated GFR (MDRD) 59 BUN/Creatinine Ratio Glucose 261 H (74-105) mg/dL Lactic Acid (0.5-2.2) mmol/L Calcium 8.0 L (8.4-10.2) mg/dl Total Bilirubin (0.2-1.0) mg/dL AST (10-42) IU/L ALT (10-60) IU/L Alkaline Phosphatase (42-121) IU/L Troponin I (0.00-0.02) ng/ml B-Natriuretic Peptide (0-100) pg/ml Total Protein (6.7-8.2) g/dl Albumin (3.2-5.5) g/dl Globulin Albumin/Globulin Ratio Urine Color (YELLOW) Urine Appearance (CLEAR) Urine pH (5.0-9.0) Ur Specific [place] (1.005-1.030) Urine Protein (NEGATIVE) Urine Glucose (UA) (NEGATIVE) Urine Ketones (NEGATIVE) Urine Occult Blood (NEGATIVE) Urine Nitrite (NEGATIVE) Urine Bilirubin (NEGATIVE) Urine Urobilinogen (0.2-1.0) mg/dL Ur Leukocyte Esterase (NEGATIVE) Urine RBC /HPF Urine WBC (0-5/HPF) /HPF Ur Epithelial Cells /HPF Amorphous Sediment (0/HPF) /HPF Urine Bacteria (0-FEW/HPF) /HPF Alex Results Last 24 Hours: Microbiology 11/30/18 10:43 Aerobic Blood Culture - Preliminary Blood - Venous NO GROWTH AFTER 1 DAY Anaerobic Blood Culture - Preliminary NO GROWTH AFTER 1 DAY 11/30/18 10:50 Aerobic Blood Culture - Preliminary Blood - Venous - Lab Draw NO GROWTH AFTER 1 DAY Anaerobic Blood Culture - Preliminary NO GROWTH AFTER 1 DAY 11/30/18 10:39 Influenza Type A Antigen Screen - Final Nasal, Unspecified NEGATIVE INFLUENZA A VIRUS AG Influenza Type B Antigen Screen - Final NEGATIVE INFLUENZA B VIRUS AG Med Orders - Current: Current Medications Acetaminophen (Tylenol) 650 mg PO TID [facility] Last Admin: 12/01/18 09:32 Dose: 650 mg Acetaminophen (Tylenol) 325 mg PO Q8H PRN PRN Reason: Pain Aspirin (Aspirin) 81 mg PO DAILY [facility] Last Admin: 12/01/18 09:34 Dose: 81 mg Bisacodyl (Dulcolax) 10 mg RECTAL DAILY PRN PRN Reason: Constipation Donepezil HCl (Aricept) 10 mg PO DAILY [facility] Last Admin: 12/01/18 09:34 Dose: 10 mg Escitalopram Oxalate (Lexapro) 10 mg PO DAILY [facility] Last Admin: 12/01/18 09:34 Dose: 10 mg Heparin Sodium (Porcine) (Heparin Sodium) 5,000 units SUBCUT Q12H [facility] Last Admin: 12/01/18 09:32 Dose: 5,000 units Levofloxacin/Dextrose 250 mg/ (Premix) 50 mls @ 50 mls/hr IV Q24H [facility] Dextrose/Water (Dextrose 5% In Water) 1,000 mls @ 75 mls/hr IV ASDIRECTED [facility] Last Admin: 12/01/18 10:46 Dose: 75 mls/hr Levothyroxine Sodium (Synthroid) 50 mcg PO ACBREAKFAST [facility] Last Admin: 12/01/18 07:25 Dose: 50 mcg Loperamide HCl (Imodium) 2 mg PO ASDIRECTED PRN PRN Reason: Diarrhea Lorazepam (Ativan) 0.5 mg PO BID [facility] Last Admin: 12/01/18 09:32 Dose: 0.5 mg Lorazepam (Ativan) 0.5 mg PO Q8H PRN PRN Reason: Anxiety Magnesium Hydroxide (Milk Of Magnesia) 30 ml PO DAILY PRN PRN Reason: Constipation Memantine (Namenda) 10 mg PO BID [facility] Last Admin: 12/01/18 09:32 Dose: 10 mg Polyethylene Glycol (Miralax) 17 gm PO BEDTIME [facility] Last Admin: 11/30/18 22:40 Dose: 17 gm Risperidone (Risperidal) 0.25 mg PO BID [facility] Last Admin: 12/01/18 09:34 Dose: 0.25 mg Senna/Docusate Sodium (Senna Plus) 2 tab PO BEDTIME [facility] Last Admin: 11/30/18 22:42 Dose: 2 tab Sodium Chloride (Saline Flush) 10 ml FLUSH ASDIRECTED PRN PRN Reason: Keep Vein Open Last Admin: 11/30/18 10:34 Dose: 10 ml Timolol Maleate (Timoptic 0.5% Ophth Soln) 0 ml EYELF BID [facility] Last Admin: 12/01/18 09:36 Dose: 1 drop Discontinued Medications Sodium Chloride (Normal Saline) 1,000 mls @ 999 mls/hr IV .BOLUS ONE Stop: 11/30/18 11:35 Last Admin: 11/30/18 11:20 Dose: 999 mls/hr Levofloxacin/Dextrose 500 mg/ (Premix) 100 mls @ 100 mls/hr IV ONETIME ONE Stop: 11/30/18 12:49 Last Admin: 11/30/18 12:10 Dose: 100 mls/hr Dextrose/Sodium Chloride (Dextrose 5%-1/2 Ns) 1,000 mls @ 999 mls/hr IV ONETIME ONE Stop: 11/30/18 18:15 Sodium Chloride (Sodium Chloride 0.45%) 1,000 mls @ 999 mls/hr IV ONETIME ONE Stop: 11/30/18 18:15 Last Admin: 11/30/18 17:22 Dose: 250 mls/hr Non-Formulary Medication (Fruit Bomb) 1 tbsp PO Q2D PRN PRN Reason: Constipation Non-Formulary Medication (Na Phos,M-B/Na Phos,Di-B [Fleet Enema]) 118 ml RECTAL Q72H PRN PRN Reason: Constipation - Exam Quality Assessment: Supplemental Oxygen, DVT Prophylaxis General: Alert, Oriented HEENT: Pupils Equal, Pupils Reactive, EOMI, Mucous Membr. Moist/[place] Neck: Supple Lungs: Clear to Auscultation, Normal Respiratory Effort Cardiovascular: Regular Rate, Regular Rhythm GI/Abdominal Exam: Normal Bowel Sounds, Soft, Non-Tender, No Organomegaly, No Distention, No Abnormal Bruit, No Mass, Pelvis Stable (Female) Exam: Normal External Exam, Normal Speculum Exam, Normal Bimanual Exam Back Exam: Normal Inspection, Full Range of Motion Extremities: Normal Inspection, Normal Range of Motion, Non-Tender, No Pedal Edema, Normal Capillary Refill Skin: Warm, Dry, Intact Wound/Incisions: Healing Well Neurological: No New Focal Deficit Psy/Mental Status: Alert, Normal Affect, Normal Mood - Problem List & Annotations (1) Sepsis SNOMED Code(s): 64245358 Code(s): A41.9 - SEPSIS, UNSPECIFIED ORGANISM Status: Acute Current Visit : Yes (2) Advanced dementia SNOMED Code(s): 48156763 Code(s): F03.90 - UNSPECIFIED DEMENTIA WITHOUT BEHAVIORAL DISTURBANCE Status: Acute Current Visit: Yes (3) Dehydration SNOMED Code(s): 47522026 Code(s): E86.0 - DEHYDRATION Status: Acute Current Visit: Yes (4) Fever of unknown origin SNOMED Code(s): 1503167 Code(s): R50.9 - FEVER, UNSPECIFIED Status: Acute Current Visit: Yes (5) Hypernatremia SNOMED Code(s): 12066478 Code(s): E87.0 - HYPEROSMOLALITY AND HYPERNATREMIA Status: Acute Current Visit: Yes (6) Pneumonia SNOMED Code(s): 158528151 Code(s): J18.9 - PNEUMONIA, UNSPECIFIED ORGANISM Status: Acute Current Visit: Yes Qualifiers: Pneumonia type: due to unspecified organism Laterality: left Lung location: lower lobe of lung Qualified Code(s): J18.1 - Lobar pneumonia, unspecified organism (7) Chin abrasion, non-infected SNOMED Code(s): 07626492, 119032311 Code(s): S00.81XA - ABRASION OF OTHER PART OF HEAD, INITIAL ENCOUNTER Status: Acute Current Visit: Yes - Problem List Review Problem List Initiated/Reviewed/Updated: Yes - My Orders Last 24 Hours: My Active Orders 11/30/18 15:09 Up With Assistance [RC] ASDIRECTED 11/30/18 15:10 Patient Status [ADT] Routine Vital Signs [RC] 00,04,08,12,16,20 11/30/18 15:11 Intake and Output [RC] QSHIFT 11/30/18 15:12 Notify Provider Vital Signs [RC] ASDIRECTED 11/30/18 15:15 Code Status [Resuscitation Status] Routine 11/30/18 15:17 Bisacodyl [Dulcolax] 10 mg RECTAL DAILY PRN 11/30/18 16:45 Dextrose 5% in Water 1,000 ml IV ASDIRECTED 11/30/18 17:08 Acetaminophen [Tylenol] 325 mg PO Q8H PRN LORazepam [Ativan] 0.5 mg PO Q8H PRN Loperamide [Imodium] 2 mg PO ASDIRECTED PRN Magnesium Hydroxide [Milk of Magnesia] 30 ml PO DAILY PRN 11/30/18 21:00 Acetaminophen [Tylenol] 650 mg PO TID Docusate Sodium/Sennosides [Senna Plus] 2 tab PO BEDTIME Heparin Sodium 5,000 units SUBCUT Q12H LORazepam [Ativan] 0.5 mg PO BID Memantine [Namenda] 10 mg PO BID Polyethylene Glycol 3350 [MiraLAX] 17 gm PO BEDTIME Timolol Maleate [Timoptic 0.5% Ophth Soln] 0 ml EYELF BID risperiDONE [RisperiDAL] 0.25 mg PO BID 11/30/18 Dinner Regular Diet [DIET] 12/01/18 06:00 Levothyroxine [Synthroid] 50 mcg PO ACBREAKFAST 12/01/18 08:52 LACTIC ACID [CHEM] Routine 12/01/18 09:00 Aspirin 81 mg PO DAILY Donepezil [Aricept] 10 mg PO DAILY Escitalopram [Lexapro] 10 mg PO DAILY 12/01/18 11:15 SODIUM,NA [CHEM] Q4H 12/01/18 12:00 Levofloxacin/Dextrose 5%-Water [Levaquin in D5W 250 MG/50 ML] 250 mg Premix Bag 1 bag IV Q24H - Plan Plan:: Hypernatremia due to dehydration Na trending down, 148 this AM Continue 5% dextrose at 75 cc Na q4h Possible developing pneumonia Repeat cxr negative Blood cx x 2, sputum for Gram stain and cx in progress Continue Levaquin IV Possible sepsis due to above Resolving IV abx Follow cx IVF Lactic acidosis due to sepsis vs dehydration Resolved Severe Dementia continue Aricept Regular diet DNI/DNR
[2018-12-01] MEDS: Levofloxacin/Dextrose 5%-Water 250 MG in Premix Bag 1 BAG IV SCH (12:09)
[2018-12-01] MEDS: Polyethylene Glycol 3350 Powder 17 GM Packet PO SCH (20:38)
[2018-12-02] MEDS: Dextrose 5% in Water 1,000 ML IV SCH (01:13)
[2018-12-02] MEDS: Levothyroxine 50 MCG Tab PO SCH (06:28)
[2018-12-02] MEDS: Acetaminophen 325 MG Tab PO SCH (09:09)
[2018-12-02] MEDS: LORazepam 0.5 MG Tab PO SCH (09:10)
[2018-12-02] MEDS: Donepezil 10 MG Tab PO SCH (09:10)
[2018-12-02] MEDS: Aspirin 81 MG Tab.Chew PO SCH (09:10)
[2018-12-02] MEDS: Memantine 10 MG Tab PO SCH (09:11)
[2018-12-02] MEDS: risperiDONE 0.5 MG Tab PO SCH (09:11)
[2018-12-02] MEDS: Escitalopram 10 MG Tab PO SCH (09:11)
[2018-12-02] MEDS: Heparin Sodium 5,000 Units/ML Vial SUBCUT SCH (09:12)
[2018-12-02] MEDS: Timolol Maleate 0.5% Ophth Soln 5 ML Bottle EYELF SCH (09:13)
[2018-12-02] MEDS ORDERED: Morphine 2 MG/ML Syringe IVPUSH ONE (10:20)
--- NOTE | 2018-12-02 11:18 | PCM.DCSUM1 ---
Discharge Summary - Hospital Course Free Text/Narrative:: Patient is a residence of [facility] who was brought to the ER on a/ o fever, cough, hypoxia and tachycardia. When she was see in te ER she was afebrile, heart rate was 103, and oxy. sat. of 95% on RA. She did drop her oxygen saturation to 90%-92% later in the ER and was placed on 2L by NC and maintained saturation at 98%. She was found to have hypernatremia and subsequently admitted. She was also managed for possible sepsis from developing pneumonia. CXR was negative for infiltrate. She received IVF and IV abx. Hypernatremia has resolved and she is back to her baseline. She is being discharge back to the [place] in stable condition. She will follow up with PCP. Diagnosis: Stroke: No - Discharge Data Discharge Date: 12/02/18 Discharge Disposition: DC/Tfer to [facility] 03 Condition: Good - Discharge Diagnosis/Problem(s) (1) Sepsis SNOMED Code(s): 12758359 ICD Code: A41.9 - SEPSIS, UNSPECIFIED ORGANISM Status: Acute Current Visit: Yes (2) Advanced dementia SNOMED Code(s): 40802868 ICD Code: F03.90 - UNSPECIFIED DEMENTIA WITHOUT BEHAVIORAL DISTURBANCE Status: Acute Current Visit: Yes (3) Dehydration SNOMED Code(s): 27449899 ICD Code: E86.0 - DEHYDRATION Status: Acute Current Visit: Yes (4) Fever of unknown origin SNOMED Code(s): 0703537 ICD Code: R50.9 - FEVER, UNSPECIFIED Status: Acute Current Visit: Yes (5) Hypernatremia SNOMED Code(s): 87901934 ICD Code: E87.0 - HYPEROSMOLALITY AND HYPERNATREMIA Status: Acute Current Visit: Yes (6) Pneumonia SNOMED Code(s): 439158721 ICD Code: J18.9 - PNEUMONIA, UNSPECIFIED ORGANISM Status: Acute Current Visit: Yes Qualifiers: Pneumonia type: due to unspecified organism Laterality: left Lung location: lower lobe of lung Qualified Code(s): J18.1 - Lobar pneumonia, unspecified organism (7) Chin abrasion, non-infected SNOMED Code(s): 79890149, 928938462 ICD Code: S00.81XA - ABRASION OF OTHER PART OF HEAD, INITIAL ENCOUNTER Status: Acute Current Visit: Yes - Discharge Plan *PRESCRIPTION DRUG MONITORING PROGRAM REVIEWED*: Not Applicable *COPY OF PRESCRIPTION DRUG MONITORING REPORT IN PATIENT KENDRICK: Not Applicable Prescriptions/Med Rec: levoFLOXacin [Levaquin] 250 mg PO DAILY #3 tab Home Medications: Home Meds Bisacodyl [Dulcolax] 10 mg RECTAL Q24H PRN 12/09/13 [History] Donepezil HCl 10 mg PO DAILY 12/09/13 [History] LORazepam [Ativan] 0.5 mg PO BID 12/09/13 [History] Levothyroxine Sodium 0.05 mg PO DAILY 12/09/13 [History] Memantine HCl [Namenda] 10 mg PO BID 12/09/13 [History] Na Phos,M-B/Na Phos,DI-B [Fleet Enema] 118 ml RECTAL Q72H PRN 12/09/13 [History] risperiDONE [Risperdal] 0.25 mg PO BID 12/09/13 [History] Acetaminophen [Tylenol] 650 mg PO TID 02/22/18 [History] Aspirin 81 mg PO DAILY 02/22/18 [History] Escitalopram Oxalate 10 mg PO DAILY 02/22/18 [History] Fruit Bomb 1 tbsp PO Q2D PRN 02/22/18 [History] Loperamide HCl [Anti-Diarrheal] 2 mg PO ASDIRECTED PRN 02/22/18 [History] Magnesium Hydroxide [Milk of Magnesia] 2,400 mg PO DAILY PRN 02/22/18 [History] Polyethylene Glycol 3350 [Miralax] 17 gm PO BEDTIME 02/22/18 [History] Sennosides/Docusate Sodium [Senna-S] 2 each PO BEDTIME 02/22/18 [History] Timolol Maleate [Timoptic 0.5% Ophth Soln] 1 drop EYELF BID 02/22/18 [History] LORazepam 0.5 mg PO Q8H PRN 11/30/18 [History] levoFLOXacin [Levaquin] 250 mg PO DAILY #3 tab 12/02/18 [Rx] Forms: ED Department Discharge Referrals: Zulma Taylor MD [Family Provider] - - Discharge Summary/Plan Comment DC Time >30 min.: Yes - General Info Admission Dx/Problem (Free Text: Admission Diagnosis/Problem Admission Diagnosis/Problem Hypernatremia Subjective Update: Patient is a residence of [facility] who was brought to the ER on a/ o fever, cough, hypoxia and tachycardia. When she was see in te ER she was afebrile, heart rate was 103, and oxy. sat. of 95% on RA. She did drop her oxygen saturation to 90%-92% later in the ER and was placed on 2L by NC and maintained saturation at 98%. She was found to be hypernatremia and subsequently admitted. She is currently being managed for possible sepsis from developing pneumonia. Patient is DNR/DNI but family otherwise wishes to have conservative medical care. She was seen and examined today. Her overall condition remains unchanged. Sodium trending down, 148 this AM. Repeat chest x-ray unchanged from yesterday. No infiltrates. She remains hemodynamically stable Functional Status: Reports: Pain Controlled - Review of Systems General: Reports: No Symptoms HEENT: Reports: No Symptoms Pulmonary: Reports: No Symptoms Cardiovascular: Reports: No Symptoms Gastrointestinal: Reports: No Symptoms Genitourinary: Reports: No Symptoms Musculoskeletal: Reports: No Symptoms Skin: Reports: No Symptoms Neurological: Reports: No Symptoms Psychiatric: Reports: No Symptoms - Patient Data Vitals - Most Recent: Last Vital Signs Temp 97.5 F 12/02/18 08:00 Pulse 80 12/02/18 10:50 Resp 18 12/02/18 10:50 BP 106/62 12/02/18 10:50 Pulse Ox 97 12/02/18 10:50 Weight - Most Recent: 200 lb I&O - Last 24 hours: Intake & Output 12/01/18 12/02/18 12/02/18 22:59 06:59 14:59 Intake Total 50 1104 200 Balance 50 1104 200 Lab Results - Last 24 hrs: Laboratory Results - last 24 hr 12/01/18 12/01/18 12/01/18 Range/Units 11:27 11:27 20:30 Sodium 148 H 145 (135-145) mmol/L Lactic Acid 2.5 H (0.5-2.2) mmol/L CLAUDE Results - Last 24 hrs: Microbiology 11/30/18 10:43 Aerobic Blood Culture - Preliminary Blood - Venous NO GROWTH AFTER 2 DAYS Anaerobic Blood Culture - Preliminary NO GROWTH AFTER 2 DAYS 11/30/18 10:50 Aerobic Blood Culture - Preliminary Blood - Venous - Lab Draw NO GROWTH AFTER 2 DAYS Anaerobic Blood Culture - Preliminary NO GROWTH AFTER 2 DAYS Med Orders - Current: Current Medications Acetaminophen (Tylenol) 650 mg PO TID [facility] Last Admin: 12/02/18 09:09 Dose: 650 mg Acetaminophen (Tylenol) 325 mg PO Q8H PRN PRN Reason: Pain Aspirin (Aspirin) 81 mg PO DAILY [facility] Last Admin: 12/02/18 09:10 Dose: 81 mg Bisacodyl (Dulcolax) 10 mg RECTAL DAILY PRN PRN Reason: Constipation Donepezil HCl (Aricept) 10 mg PO DAILY [facility] Last Admin: 12/02/18 09:10 Dose: 10 mg Escitalopram Oxalate (Lexapro) 10 mg PO DAILY [facility] Last Admin: 12/02/18 09:11 Dose: 10 mg Heparin Sodium (Porcine) (Heparin Sodium) 5,000 units SUBCUT Q12H [facility] Last Admin: 12/02/18 09:12 Dose: 5,000 units Levofloxacin/Dextrose 250 mg/ (Premix) 50 mls @ 50 mls/hr IV Q24H [facility] Last Admin: 12/01/18 12:09 Dose: 50 mls/hr Dextrose/Water (Dextrose 5% In Water) 1,000 mls @ 75 mls/hr IV ASDIRECTED [facility] Last Admin: 12/02/18 01:13 Dose: 75 mls/hr Levothyroxine Sodium (Synthroid) 50 mcg PO ACBREAKFAST [facility] Last Admin: 12/02/18 06:28 Dose: 50 mcg Loperamide HCl (Imodium) 2 mg PO ASDIRECTED PRN PRN Reason: Diarrhea Lorazepam (Ativan) 0.5 mg PO BID [facility] Last Admin: 12/02/18 09:10 Dose: 0.5 mg Lorazepam (Ativan) 0.5 mg PO Q8H PRN PRN Reason: Anxiety Magnesium Hydroxide (Milk Of Magnesia) 30 ml PO DAILY PRN PRN Reason: Constipation Memantine (Namenda) 10 mg PO BID [facility] Last Admin: 12/02/18 09:11 Dose: 10 mg Morphine Sulfate (Morphine) 1 mg IVPUSH ONETIME ONE Stop: 12/02/18 10:21 Polyethylene Glycol (Miralax) 17 gm PO BEDTIME [facility] Last Admin: 02/12/19 20:38 Dose: 17 gm Risperidone (Risperidal) 0.25 mg PO BID [facility] Last Admin: 12/02/18 09:11 Dose: 0.25 mg Senna/Docusate Sodium (Senna Plus) 2 tab PO BEDTIME [facility] Last Admin: 12/01/18 20:14 Dose: 2 tab Sodium Chloride (Saline Flush) 10 ml FLUSH ASDIRECTED PRN PRN Reason: Keep Vein Open Last Admin: 11/30/18 10:34 Dose: 10 ml Timolol Maleate (Timoptic 0.5% Ophth Soln) 0 ml EYELF BID [facility] Last Admin: 12/02/18 09:13 Dose: 1 drop Discontinued Medications Sodium Chloride (Normal Saline) 1,000 mls @ 999 mls/hr IV .BOLUS ONE Stop: 11/30/18 11:35 Last Admin: 11/30/18 11:20 Dose: 999 mls/hr Levofloxacin/Dextrose 500 mg/ (Premix) 100 mls @ 100 mls/hr IV ONETIME ONE Stop: 11/30/18 12:49 Last Admin: 11/30/18 12:10 Dose: 100 mls/hr Dextrose/Sodium Chloride (Dextrose 5%-1/2 Ns) 1,000 mls @ 999 mls/hr IV ONETIME ONE Stop: 11/30/18 18:15 Sodium Chloride (Sodium Chloride 0.45%) 1,000 mls @ 999 mls/hr IV ONETIME ONE Stop: 11/30/18 18:15 Last Admin: 11/30/18 17:22 Dose: 250 mls/hr Non-Formulary Medication (Fruit Bomb) 1 tbsp PO Q2D PRN PRN Reason: Constipation Non-Formulary Medication (Na Phos,M-B/Na Phos,Di-B [Fleet Enema]) 118 ml RECTAL Q72H PRN PRN Reason: Constipation - Exam Quality Assessment: Reports: Supplemental Oxygen General: Reports: Alert, Oriented HEENT: Reports: Pupils Equal, Pupils Reactive, EOMI, Mucous Membr. Moist/[place] Neck: Reports: Supple Lungs: Reports: Clear to Auscultation, Normal Respiratory Effort Cardiovascular: Reports: Regular Rate, Regular Rhythm GI/Abdominal Exam: Normal Bowel Sounds, Soft, Non-Tender, No Organomegaly, No Distention, No Abnormal Bruit, No Mass, Pelvis Stable (Female) Exam: Normal External Exam, Normal Speculum Exam, Normal Bimanual Exam Rectal (Female) Exam: Normal Exam, Normal Rectal Tone Back Exam: Reports: Normal Inspection, Full Range of Motion Extremities: Normal Inspection, Normal Range of Motion, Non-Tender, No Pedal Edema, Normal Capillary Refill Skin: Reports: Warm, Dry, Intact Wound/Incisions: Reports: Healing Well Neurological: Reports: No New Focal Deficit Psy/Mental Status: Reports: Alert, Normal Affect, Normal Mood
[2018-12-02] MEDS: Levofloxacin/Dextrose 5%-Water 250 MG in Premix Bag 1 BAG IV SCH (13:10)
== END 2018-12-02 13:30 | DRG 871 ==
LOC: DL.ED 10:25 → DL.MS 13:07 → UNDOADMOB 13:07 → DL.MS 15:10 → OBSVTOIN 12-01 11:29
PROVIDERS: ADMIT Student in an Organized Health Care Education/Training Program; ATTEND Student in an Organized Health Care Education/Training Program
DX: A41.9 Sepsis, unspecified organism (principal); J18.1 Lobar pneumonia, unspecified organism; E87.0 Hyperosmolality and hypernatremia; E87.2 Acidosis; Z66 Do not resuscitate; F03.90 Unspecified dementia, unspecified severity, without behavioral disturbance, psychotic disturbance, mood disturbance, and anxiety; E86.0 Dehydration; H40.059 Ocular hypertension, unspecified eye; K59.09 Other constipation; M19.90 Unspecified osteoarthritis, unspecified site; F41.9 Anxiety disorder, unspecified; I10 Essential (primary) hypertension; E03.9 Hypothyroidism, unspecified; Z79.82 Long term (current) use of aspirin
CPT/HCPCS: 36415; 71045; 80048; 80053; 81001; 83605; 83880; 84295; 84484; 85025; 85610; 85730; 87040; 87804; 93005; 96360; 96361; 99285; A9270-GY; J1644; J1956; J7030; J7060